=== PATIENT | male | born 1945 | race Caucasian/White ===

== ENCOUNTER 2017-10-15 06:34 | Day surgery (SDC) | payer OTHER ==
[2017-10-12 11:24] VITALS: BMI 20.9
[2017-10-15] MEDS ORDERED: BACITRACIN 15 GM TUBE TOPICAL OINTMENT ONE (07:15)
[2017-10-15] MEDS ORDERED: LIDOCAINE HCL 1%, 10 MG/ML (20ML VIAL) ONE (07:15)
[2017-10-15] MEDS ORDERED: LIDOCAINE HCL/PF 2% SDV 5ML VIAL ONE ×2 (07:18→08:07)
[2017-10-15] MEDS ORDERED: DEXAMETHASONE SOD PHOSPHATE 4 MG/1 ML VIAL ONE (07:18)
[2017-10-15] MEDS ORDERED: PHENYLEPHRINE HCL 10 MG/1 ML SINGLE DOSE VIAL ONE (07:18)
[2017-10-15] MEDS ORDERED: SUCCINYLCHOLINE CHLORIDE 200 MG/10 ML VIAL ONE ×2 (07:19)
[2017-10-15] MEDS ORDERED: PROPOFOL 20 ML ONE ×4 (07:19→08:07)
[2017-10-15] MEDS ORDERED: MIDAZOLAM HCL 2 MG/2 ML SINGLE DOSE VIAL ONE ×2 (07:19→08:07)
[2017-10-15] MEDS ORDERED: ePHEDrine SULFATE 50 MG/1 ML AMPULE ONE (07:19)
[2017-10-15] MEDS ORDERED: SODIUM CHLORIDE 0.9% P/F 10 ML VIAL IJ ONE (07:20)
[2017-10-15] MEDS ORDERED: ceFAZolin SODIUM 1 GM VIAL IVPB ONE (08:11)
[2017-10-15] MEDS ORDERED: LIDOCAINE HCL 1%, 10 MG/ML (20ML VIAL) NR ONE ×2 (08:58)
[2017-10-15] MEDS ORDERED: BACITRACIN 50,000 UNITS VIAL TP ONE (09:21)
[2017-10-15] MEDS ORDERED: KETOROLAC TROMETHAMINE 30 MG/1 ML VIAL ONE (09:47)
[2017-10-15] MEDS ORDERED: oxyCODONE HCL 5 MG TABLET PO PRN (10:07)
[2017-10-15] MEDS ORDERED: ONDANSETRON 4 MG/2 ML VIAL IVPUSH PRN (10:07)
[2017-10-15] MEDS ORDERED: LACTATED RINGERS SOLUTION 1,000 ML IV SCH (10:15)
[2017-10-15 10:58] VITALS: TEMP 98
[2017-10-15 11:58] VITALS: BP 133/92; PULSE 68
--- NOTE | 2017-10-15 12:05 | OP ---
Operative Note - Note: Operative Date: 10/15/17 Pre-Operative Diagnosis: urge incontinence Operation: Full Interstim Implant Implants: interstim Post-Operative Diagnosis: Same as Pre-op Surgeon: Erasmo Quick Anesthesia: MAC
--- NOTE | 2017-10-15 22:02 | OP ---
DATE OF OPERATION: 10/15/2017 PREOPERATIVE DIAGNOSIS: Urge incontinence. POSTOPERATIVE DIAGNOSIS: Urge incontinence. PROCEDURE: 1. Complete InterStim system implantation with incision and implantation of tined quadripolar lead electrodes into foramen S3. 2. Fluoroscopic guidance for needle placement. 3. Subcutaneous implantation of sacral nerve neurostimulator, electronic analysis and complex programming. ANESTHESIA: MAC. SURGEON: Juliana Disla MD INDICATIONS FOR THE PROCEDURE: Patient has severe urinary frequency and urgency with urge incontinence. The patient was informed of the risks and benefits of the procedures and agreed to undertake this procedure. DESCRIPTION OF PROCEDURE: The patient was properly identified and placed in prone position as per operating room protocol. MAC anesthesia was administered. The patient was given 1 g of Ancef. Pillows were placed under the lower abdomen to flatten the sacrum and under the shins to allow the toes to dangle freely. Tape was placed on each buttock and pulled laterally to separate cheeks adequately to visualize anal sphincter. The patient was prepped and draped in the usual sterile manner using ChloraPrep prep solution. The C-arm was moved into the PA position to provide fluoroscopy visual and the midline of the vertebrae. S1 notches and medial foraminal borders were marked. The C-arm was moved to the lateral position to image the area from sacral promontory to the coccyx. Local injection of lidocaine was administered. A 3.5-inch size needle was introduced approximately 2 cm above the SI notch and 3 cm lateral to the vertebral midline, feeling for foraminal margins until the S3 foramen was identified and penetrated. The depth of the needle was confirmed and adjusted fluoroscopically. Proper needle position was confirmed by patient identification of location of sensation, direct observation of the lifting of the perineum or bellowing, and observation of plantar flexion of the great toe utilizing the test stimulator box. The needle stylet was removed and a directional guidewire was placed and confirmed fluoroscopically. The foramen needle was removed. An incision was made peripherally to the directional guidewire through the fascial layer. The dilator and introducer sheath were placed over the directional guidewire and directed into the foramen until the opaque marker of the dilator was seen on the anterior rim of the sacrum. The dilator obturator was unlocked and removed. The lead was then placed through the introducer sheath to the first white line. Position was checked fluoroscopically. The lead was then further introduced until 3 electrodes were visible below the sacrum. Each electrode was tested for location of patient sensation, visualization of ray and plantar flexion of the great toe. After satisfactory positioning was confirmed, under continuous fluoroscopy, the introducer sheath was retracted, deploying the lead tines into the perisacral tissue. Further incision was made into the subcutaneous tissue posterior to the iliac crest and blunt dissection was continued until the gluteal fascia was identified and hemostasis was achieved, allowing for a sufficient pocket for the neurostimulator. A tunneling tool and tube were placed from the lead subcutaneously to the incised pocket site. The tunneling tool was removed and the lead was fed through the tube and pulled out at the pocket site. The lead was cleansed of bodily fluids and a boot was placed over the lead. The lead was inserted into the InterStim II pulse generator and the metal bands were aligned with the white lead tip clearly visible in the distal portion of the pulse generator header. The single set screw was tightened with the hex wrench. The pulse generator was placed into the subcutaneous pocket with the etched identification side placed upward and the extension wrapped counterclockwise around the pulse generator. The programming head was placed over the implanted neurostimulator. The impedance was verified to ensure adequate lead placement and the parameters were within normal limits. If impedance is greater than the normal limits, a second interrogation is required. If the second interrogation is required, further troubleshooting may be required. Impedances were checked, confirmed to be within normal limits at greater than 50 and less than 4000. After implantation of the neurostimulator was completed, complex programming of the neurostimulator was performed based on impedance values. Final electrode sensations were set to 0+1-2-. Estimated time for analysis and complex programming was 30 minutes. The wounds were irrigated with antibiotic solution and water and closed with a subcutaneous and subcuticular stitch. Counts were correct. Steri-Strips and gauze were placed over the incision under the cable connector. The estimated blood loss was less than 3 mL. The patient was transferred to postop in satisfactory condition. Using the clinician sql database programmer, the patient was programmed to the lead of optimum sensation and given instructions on utilizing the patient sql database programmer prior to discharge. JULIANA DISLA M.D. [id number]
== END 2017-10-15 11:45 | disposition home or self-care (01) ==
LOC: JASU-SURG 06:34
PROVIDERS: ATTEND Urology
PROC: 01HY0MZ Insertion of Neurostimulator Lead into Peripheral Nerve, Open Approach (ICD-10-PCS; 2017-10-15)
PROC: 4B00XVZ Measurement of Central Nervous Stimulator, External Approach (ICD-10-PCS; 2017-10-15)
PROC: 0JH70BZ Insertion of Single Array Stimulator Generator into Back Subcutaneous Tissue and Fascia, Open Approach (ICD-10-PCS; principal; 2017-10-15 08:00)
DX: N39.41 Urge incontinence (principal)
CPT/HCPCS: 64581; 64590; 95972; C1767; C1778; 76000-TC; 94760

== ENCOUNTER 2021-01-30 09:00 | Emergency (ER) | payer OTHER ==
[2021-01-30 09:14] VITALS: BMI 22.4
[2021-01-30 11:07] LABS: BASO % 0.5 % (0-2.0); EOS % 0.8 % (0-4.5); HEMOGLOBIN 12.8 GM/dL (11.7-16.9); LYMPH % 22.4 % (8-40); MCHC 33.7 g/dl (32.0-35.9); MEAN PLT VOLUME 8.2 fl (7.5-11.1); MONO % 6.6 % (3.8-10.2); NEUT % 69.7 % (42.8-82.8); PLATELET COUNT 203 K/MM3 (134-434); RBC 4.13 M/mm3 (4.00-5.60); RDW 14.1 % (11.9-15.9); WHITE BLOOD COUNT 4.4 K/mm3 (4.0-10.0)
[2021-01-30 11:13] LABS: INR 0.96 (0.83-1.09); PROTHROMBIN TIME (PATIENT) 11.6 SEC (9.7-13.0)
[2021-01-30 11:15] LABS: ACTIVATED PTT 26.5 SECONDS (25.2-36.5)
[2021-01-30 11:26] LABS: CHLORIDE 104 mmol/L (98-107); SODIUM 141 mmol/L (136-145)
[2021-01-30 11:30] LABS: CALCIUM 9.1 mg/dL (8.5-10.1); GLUCOSE,RANDOM 81 mg/dL (74-106)
[2021-01-30 11:31] LABS: ALBUMIN 3.5 g/dl (3.4-5.0); ANION GAP 4 MMOL/L (8-16); BLOOD UREA NITROGEN 20.5 mg/dL (7-18); CO2 33 mmol/L (21-32)
[2021-01-30 11:33] LABS: CREATININE 1.3 mg/dL (0.55-1.3)
[2021-01-30 11:34] LABS: SGOT/AST 32 U/L (15-37); SGPT/ALT 12 U/L (13-61)
[2021-01-30 11:35] LABS: BILIRUBIN,TOTAL 0.6 mg/dL (0.2-1); TOT PROT 6.4 g/dl (6.4-8.2)
[2021-01-30 11:37] LABS: ALK PHOS 76 U/L (45-117)
[2021-01-30 12:15] LABS: URINE APPEARANCE CLOUDY; URINE BILIRUBIN NEGATIVE (NEGATIVE); URINE COLOR YELLOW; URINE GLUCOSE (UA) NEGATIVE (NEGATIVE); URINE KETONE NEGATIVE (NEGATIVE); URINE LEUK ESTERASE NEGATIVE (NEGATIVE); URINE NITRITE NEGATIVE (NEGATIVE); URINE PROTEIN NEGATIVE (NEGATIVE); URINE UROBILINOGEN 0.2 mg/dL (0.2-1.0)
[2021-01-30 15:00] VITALS: BP 122/74; PULSE 78; TEMP 98
== END 2021-01-30 15:19 | disposition home or self-care (01) ==
LOC: JER 09:00
DX: G20 Parkinson's disease (principal); R44.3 Hallucinations, unspecified
CPT/HCPCS: 36415; 70450-TC; 71260-TC; 72125-TC; 72128-TC; 72131-TC; 73562-TC-LT-FY; 73562-TC-RT-FY; 74177-TC; 80053; 81003; 84484; 85025; 85610; 85730; 87086; 93005; 93010; 99285-25; C9803; U0003; U0005